=== PATIENT | female | born 1980 | race Caucasian/White ===

== ENCOUNTER 2017-12-16 19:22 | Inpatient (IN) | payer OTHER ==
[2017-12-16] MEDS ORDERED: MORPHINE 4 MG/ML SYR ONE ×2 (19:57→23:12)
[2017-12-16] MEDS ORDERED: ONDANSETRON 4 MG/2 ML VIAL ONE (19:57)
[2017-12-16] MEDS ORDERED: FAMOTIDINE 20 MG/2 ML VIAL IV ONE (19:57)
[2017-12-16 20:26] LABS: Absolute Lymphocytes (CBC) 2.4 K/uL (0.7-4.9); Absolute Monocytes 0.5 K/uL (0.1-1.3); Absolute Neutrophil 5.3 K/uL (1.8-8.0); Basophils % 0.4 % (0-1.3); Eosinophils % 1.7 % (0-4.4); Hematocrit 37.9 % (36.0-45.0); Lymphocytes % 28.8 % (15.3-44.8); MCH 29.3 pg (27.0-35.0); MCV 85.4 fL (80-100); MPV 7.9 fL (7.6-11.3); Monocytes % 5.6 % (3.3-12.3); RBC Red Blood Cell Count 4.44 M/uL (3.86-4.86)
[2017-12-16 20:41] LABS: Urine Bacteria <20 /HPF (<20); Urine Culture Reflex Order NOT NEEDED; Urine RBC >50 /HPF (NONE SEEN)
[2017-12-16 20:44] LABS: ALT/SGPT 20 U/L (12-78); AST/SGOT 19 U/L (15-37); Alkaline Phosphatase 61 U/L (45-117); Amylase Level 37 U/L (25-115); BUN Blood Urea Nitrogen 11 mg/dL (7-18); Bicarbonate 22 mmol/L (21-32); Bilirubin Direct < 0.1 mg/dL (0-0.2); Bilirubin Total 0.4 mg/dL (0.2-1.0); Glucose Level 79 mg/dL (74-106); Lipase 123 U/L (73-393); Potassium 4.2 mmol/L (3.5-5.1); Protein, Total 7.7 g/dL (6.4-8.2); Sodium Level 140 mmol/L (136-145)
--- NOTE | 2017-12-16 21:57 | RAD REPORT ---
EXAM DESCRIPTION: CT - Abdomen Pelvis W Contrast - 12/16/2017 9:34 pm CLINICAL HISTORY: Abdominal pain. Right lower quadrant pain for several days. Nausea COMPARISON: None. TECHNIQUE: Computed axial tomography of the abdomen and pelvis was obtained. 100 cc Isovue-300 is ad ministered intravenously. Oral contrast was given. All CT scans are performed using dose optimization technique as appropriate and may include automated exposure control or mA/KV adjustment according to patient size. FINDINGS: The liver, spleen, pancreas, adrenals and left kidney appear unremarkable. A 22 millimeter mass exten ds off of the right kidney. Hounsfield unit 29 The evaluation of the appendix is limited as contrast has not yet entered the terminal ileum/cecum. O n the coronal sequences there does appear to be tubular structure extending from the cecum probably r epresenting normal appendix. A thickened appendix is not seen. There is no evidence of diverticulitis. A 17 millimeter left ovarian follicle is present. No significant free fluid is noted. IMPRESSION: 22 millimeter right renal mass does not represent a simple cyst. Most likely it represen ts a benign complex cyst. Renal ultrasound in 3 months is recommended for re-evaluation. An abnormal appendix is not visualized
[2017-12-16 22:29] LABS: Urine Blood 3+ (NEG); Urine Glucose NEGATIVE (NEG); Urine Protein 1+ (NEG); Urine Specific Gravity 1.025 (1.005-1.030); Urine pH 5.5 (5.0-7.0)
--- NOTE | 2017-12-16 22:48 | ER ---
Nurse's Notes [facility] Name: German Melchor Age: 37 yrs Sex: Female : 1980 Arrival Date: 12/16/2017 Time: 19:24 Bed 23 Private MD: Diagnosis: Lower abdominal pain, unspecified Presentation: 12/16 19:43 Presenting complaint: Patient states: right lower qaudrant pain and nausea since mg2 Friday. Transition of care: patient was not received from another setting of care. Onset of symptoms was December 14, 2017. Risk Assessment: Do you want to hurt yourself or someone else? Patient reports no desire to harm self or others. Initial Sepsis Screen: Does the patient meet any 2 criteria? No. Patient's initial sepsis screen is negative. Does the patient have a suspected source of infection? No. Patient's initial sepsis screen is negative. Care prior to arrival: None. 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 - Social history:: Smoking status: Patient/guardian denies using tobacco, Patient uses alcohol, occasionally. Patient/guardian denies using street drugs, IV drugs. - Ebola Screening: : No symptoms or risks identified at this time. Screenin:49 Abuse screen: Denies threats or abuse. Nutritional screening: No deficits noted. mg2 Tuberculosis screening: No symptoms or risk factors identified. Fall Risk None identified. Assessment: 20:10 General: Appears uncomfortable, Behavior is cooperative, crying. Pain: Complains of mg2 pain in right lower quadrant Pain does not radiate. Pain currently is 8 out of 10 on a pain scale. Quality of pain is described as aching, Pain began gradually, 2-3 days ago. Is intermittent, Alleviated by medications, rest, Noted to be grimacing. Neuro: Level of Consciousness is awake, alert, obeys commands, Oriented to person, place, time, situation. Cardiovascular: Capillary refill < 3 seconds Patient's skin is warm and dry. Respiratory: Airway is patent Respiratory effort is even, unlabored, Respiratory pattern is regular, symmetrical. GI: Abdomen is flat, non-distended, Bowel sounds present X 4 quads. Abd is soft Reports lower abdominal pain, nausea. : Urine is blood tinged, on period now. EENT: No signs and/or symptoms were reported regarding the EENT system. Derm: Skin is intact, Skin is pink, warm \T\ dry. normal. Musculoskeletal: Circulation, motion, and sensation intact. 20:43 Reassessment: Patient appears in no apparent distress at this time. Patient and/or mg2 family updated on plan of care and expected duration. Pain level reassessed. Patient is alert, oriented x 3, equal unlabored respirations, skin warm/dry/pink. 12/17 00:04 Reassessment: Patient appears in no apparent distress at this time. Patient and/or mg2 family updated on plan of care and expected duration. Pain level reassessed. Patient is alert, oriented x 3, equal unlabored respirations, skin warm/dry/pink. Vital Signs: 12/16 19:46 BP 132 / 70; Pulse 78; Resp 18; Temp 98.6; Pulse Ox 100% on R/A; Weight 68.04 kg; mg2 Height 5 ft. 4 in. (162.56 cm); Pain 8/10; 20:43 BP 125 / 74; Pulse 75; Resp 17; Pulse Ox 100% on R/A; Pain 3/10; mg2 12/17 00:03 BP 121 / 76; Pulse 89; Resp 18; Pulse Ox 100% on R/A; Pain 0/10; mg2 12/16 19:46 Body Mass Index 25.75 (68.04 kg, 162.56 cm) mg2 ED Course: 12/16 19:24 Patient arrived in ED. am2 19:40 Bandar Mcmullen, LANIE is Primary Nurse. mg2 19:40 Niall Hopper PA is PHCP. cp 19:40 Foster Soto MD is Attending Physician. cp 19:46 Triage completed. mg2 19:49 Arm band placed on. mg2 20:12 Patient has correct armband on for positive identification. Placed in gown. Bed in low mg2 position. Call light in reach. Side rails up X 1. Pulse ox on. NIBP on. Door closed. Warm blanket given. 20:12 No provider procedures requiring assistance completed. Inserted saline lock: 20 gauge mg2 in right antecubital area, using aseptic technique. Blood collected. 21:29 PHCP role handed off by Niall Hopper PA sn 21:29 Stacie Rivera FNP-C is PHCP. sn 21:34 CT completed. Patient tolerated procedure well. Patient moved back from CT. ma 21:34 CT Abd/Pelvis - W/Contrast In Process Unspecified. EDMS 22:47 Rebecca Amezcua MD is Hospitalizing Provider. [facility] 12/17 00:09 Patient admitted, IV remains in place. mg2 Administered Medications: 12/16 20:09 Drug: morphine 4 mg Route: IVP; Site: right antecubital; mg2 21:21 Follow up: Response: No adverse reaction; Marked relief of symptoms mg2 20:10 Drug: Zofran 4 mg Route: IVP; Site: right antecubital; mg2 21:21 Follow up: Response: No adverse reaction; Marked relief of symptoms mg2 20:10 Drug: Pepcid 20 mg Route: IVP; Site: right antecubital; mg2 21:21 Follow up: Response: No adverse reaction; Marked relief of symptoms mg2 23:09 Drug: morphine 4 mg Route: IVP; Site: right antecubital; mg2 12/17 00:07 Follow up: Response: No adverse reaction; Marked relief of symptoms mg2 Outcome: 12/16 22:48 Decision to Hospitalize by Provider. [facility] 12/17 01:15 Patient left the ED. mg2 Signatures: Dispatcher [employer] EDMS Stacie Rivera FNP-C DIRECTOR OF ENTERPRISE STRATEGY-Csnw Niall Hopper PA PA cp Jordan, Nathan nj Moreno, Amanda am2 Gardose, Michele, LANIE RN mg2
--- NOTE | 2017-12-16 22:48 | EDPHYS ---
Physician Documentation [facility] Name: German Melchor Age: 37 yrs Sex: Female : 1980 Arrival Date: 12/16/2017 Time: 19:24 Bed 23 Private MD: ED Physician Foster Soto HPI: 12/16 19:46 This 37 yrs old Female presents to ER via Unassigned with complaints of cp Abdominal Pain - RQ. 19:46 The patient presents with abdominal pain right lower quadrant. Onset: The cp symptoms/episode began/occurred 2 day(s) ago. The symptoms do not radiate. Associated signs and symptoms: Pertinent negatives: blood in stools, constipation, diarrhea, fever, vaginal discharge, vomiting. Severity of pain: in the emergency department the pain is actually worse moderately. 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 - Social history:: Smoking status: Patient/guardian denies using tobacco, Patient uses alcohol, occasionally. Patient/guardian denies using street drugs, IV drugs. - Ebola Screening: : No symptoms or risks identified at this time. ROS: 19:50 Constitutional: Negative for body aches, chills, fever, poor PO intake. cp 19:50 Eyes: Negative for injury, pain, redness, and discharge. cp 19:50 ENT: Negative for drainage from ear(s), ear pain, sore throat, difficulty swallowing, difficulty handling secretions. 19:50 Cardiovascular: Negative for chest pain, palpitations. 19:50 Respiratory: Negative for cough, shortness of breath, wheezing. 19:50 Abdomen/GI: Positive for abdominal pain, nausea, Negative for vomiting, diarrhea, constipation, black/tarry stool, rectal bleeding. 19:50 Back: Negative for pain at rest, pain with movement, radiated pain. 19:50 : Positive for vaginal bleeding, Negative for urinary symptoms, flank pain. 19:50 Skin: Negative for cellulitis, rash. 19:50 Neuro: Negative for altered mental status, headache, weakness. 19:50 All other systems are negative. Exam: 20:00 Head/Face: Normocephalic, atraumatic. cp 20:00 Constitutional: The patient appears in no acute distress, alert, awake, non-toxic, well developed, well nourished, uncomfortable. 20:00 Eyes: Periorbital structures: appear normal, Conjunctiva: normal, no exudate, no injection, Sclera: no appreciated abnormality, Lids and lashes: appear normal, bilaterally. 20:00 ENT: External ear(s): are unremarkable, Nose: is normal, Mouth: Lips: moist, Oral mucosa: pink and intact, moist, Posterior pharynx: is normal, airway is patent. 20:00 Neck: ROM/movement: is normal, is supple, without pain, no range of motions limitations, no nuchal rigidity. 20:00 Chest/axilla: Inspection: normal, Palpation: is normal, no crepitus, no tenderness. 20:00 Cardiovascular: Rate: normal, Rhythm: regular. 20:00 Respiratory: the patient does not display signs of respiratory distress, Respirations: normal, no use of accessory muscles, no retractions, no splinting, no tachypnea, labored breathing, is not present, Breath sounds: are clear throughout, no decreased breath sounds, rhonchi, no stridor, no wheezing. 20:00 Abdomen/GI: Inspection: abdomen appears normal, Bowel sounds: active, all quadrants, Palpation: soft, in all quadrants, severe abdominal tenderness, in the right lower quadrant, voluntary guarding, is elicited in the right lower quadrant. 20:00 Back: pain, is absent, ROM is normal. 20:00 Skin: cellulitis, is not appreciated, no rash present. Vital Signs: 19:46 BP 132 / 70; Pulse 78; Resp 18; Temp 98.6; Pulse Ox 100% on R/A; Weight 68.04 kg; mg2 Height 5 ft. 4 in. (162.56 cm); Pain 8/10; 20:43 BP 125 / 74; Pulse 75; Resp 17; Pulse Ox 100% on R/A; Pain 3/10; mg2 0912 00:03 BP 121 / 76; Pulse 89; Resp 18; Pulse Ox 100% on R/A; Pain 0/10; mg2 09/11 19:46 Body Mass Index 25.75 (68.04 kg, 162.56 cm) mg2 MDM: 12/16 19:41 Patient medically screened. cp 20:00 Differential diagnosis: appendicitis, bowel obstruction, diverticulitis, Ectopic cp , non-specific abd pain, Ovarian Torsion, Pelvic Inflammatory Disease, Pyelonephritis, Tubal Ovarian Abcess, Ureterolithiasis, urinary tract infection. 20:30 Physician consultation: Phillip Wood MD in the emergency department to see patient at snw 20:30. 22:48 Data reviewed: vital signs, nurses notes. Data interpreted: Pulse oximetry: on room air snw is 100 %. Interpretation: normal. Counseling: I had a detailed discussion with the patient and/or guardian regarding: the historical points, exam findings, and any diagnostic results supporting the discharge/admit diagnosis, lab results, radiology results, the need for further work-up and treatment in the hospital. Physician consultation: Phillip Wood MD was called at 22:48, was contacted at 22:48, regarding patient's condition, would like admission per Dr. Rebecca Amezcua MD. 12/16 19:29 Order name: Urine Culture snw 12/16 19:29 Order name: Urine Microscopic Only; Complete Time: 21:22 [facility] 12/16 21:22 Interpretation: Normal except: URBC >50; SQEPI 10-20. cp 12/16 19:45 Order name: Amylase, Serum; Complete Time: 21:22 cp 12/16 19:45 Order name: Basic Metabolic Panel; Complete Time: 21:22 12/16 21:23 Interpretation: Within normal limits. 12/16 19:45 Order name: CBC with Diff; Complete Time: 21:22 cp 12/16 21:22 Interpretation: Reviewed. 12/16 19:45 Order name: Creatinine for Radiology; Complete Time: 21:22 cp 12/16 19:45 Order name: Hepatic Function; Complete Time: 21:22 cp 12/16 21:23 Interpretation: Normal except: GLOB 3.7. cp 12/16 19:45 Order name: Lipase; Complete Time: 21:22 cp 12/16 20:37 Order name: Urine Dipstick--Ancillary (enter results); Complete Time: 22:35 ms 12/16 20:37 Order name: Urine --Ancillary (enter results); Complete Time: 22:35 ms 12/16 23:18 Order name: CBC with Automated Diff EDGA 12/16 23:18 Order name: CBC with Automated Diff; Complete Time: 06:40 EDGA 12/16 23:18 Order name: Comprehensive Metabolic Panel EDGA 12/16 23:18 Order name: Comprehensive Metabolic Panel; Complete Time: 06:40 EDGA 12/16 19:29 Order name: Urine Test (obtain specimen); Complete Time: 20:10 snw 12/16 19:29 Order name: Urine Dipstick-Ancillary (obtain specimen); Complete Time: 20:10 snw 12/16 19:45 Order name: IV Saline Lock; Complete Time: 20:10 cp 12/16 19:45 Order name: Labs collected and sent; Complete Time: 20:10 cp 12/16 19:45 Order name: CT Abd/Pelvis - W/Contrast; Complete Time: 22:30 cp 12/16 22:56 Order name: CONS Physician Consult EDGA 12/16 23:18 Order name: CONS Pharmacy Consult EDGA 12/16 23:18 Order name: NPO EDGA Administered Medications: 20:09 Drug: morphine 4 mg Route: IVP; Site: right antecubital; mg2 21:21 Follow up: Response: No adverse reaction; Marked relief of symptoms mg2 20:10 Drug: Zofran 4 mg Route: IVP; Site: right antecubital; mg2 21:21 Follow up: Response: No adverse reaction; Marked relief of symptoms mg2 20:10 Drug: Pepcid 20 mg Route: IVP; Site: right antecubital; mg2 21:21 Follow up: Response: No adverse reaction; Marked relief of symptoms mg2 23:09 Drug: morphine 4 mg Route: IVP; Site: right antecubital; mg2 12/17 00:07 Follow up: Response: No adverse reaction; Marked relief of symptoms mg2 Disposition: 04:22 Co-signature as Attending Physician, Foster Soto MD. pkl Disposition: 12/16/17 22:48 Hospitalization ordered by Rebecca Amezcua for Observation. Preliminary diagnosis is Lower abdominal pain, unspecified. - Bed requested for Telemetry/MedSurg (observation). - Status is Observation. mg2 - Condition is Stable. - Problem is new. - Symptoms are unchanged. UTI on Admission? No Signatures: Dispatcher [employer] EDMS Foster Soto MD MD pkl Therrien, Shelly, JAVA SOFTWARE-C JAVA SOFTWARE-Csnw Moody Kae ms Niall Hopper PA PA cp Gardose, Michele, RN RN mg2 Corrections: (The following items were deleted from the chart) 12/16 22:50 22:48 Admission orders: after a detailed discussion of the patient's condition and snw case, the admit orders are written by me. [facility] 23:54 22:48 Hospitalization Ordered by Rebecca Amezcua MD for Observation. Preliminary ms diagnosis is Lower abdominal pain, unspecified. Bed requested for Telemetry/MedSurg (observation). Status is Observation. Condition is Stable. Problem is new. Symptoms are unchanged. UTI on Admission? No. snw 12/17 01:15 12/16 23:54 12/16/2017 22:48 Hospitalization Ordered by Rebecca Amezcua MD for mg2 Observation. Preliminary diagnosis is Lower abdominal pain, unspecified. Bed requested for Telemetry/MedSurg (observation). Status is Observation. Condition is Stable. Problem is new. Symptoms are unchanged. UTI on Admission? No. ms
[2017-12-16] MEDS ORDERED: MORPHINE 2 MG/ML SYR IV PRN (23:14)
[2017-12-16] MEDS ORDERED: ACETAMINOPHEN 500 MG TAB PO PRN (23:14)
[2017-12-16] MEDS ORDERED: ONDANSETRON 4 MG/2 ML VIAL IV PRN (23:14)
[2017-12-16] MEDS: NA CHLORIDE 0.9% 1,000 ML IV SCH (23:45)
[2017-12-17] MEDS ORDERED: ONDANSETRON 4 MG/2 ML VIAL ONE (00:03)
[2017-12-17] MEDS ORDERED: NA CHLORIDE 0.9% 1,000 ML ONE (00:03)
[2017-12-17] MEDS: METRONIDAZOLE 500mg IVPB 500 MG/100 ML BAG IV SCH ×3 (01:48→18:12)
[2017-12-17] MEDS ORDERED: MORPHINE 4 MG/ML SYR IV ONE (03:34)
[2017-12-17] MEDS ORDERED: KETOROLAC 30 MG/ML INJ IV ONE (03:35)
[2017-12-17] MEDS: NA CHLORIDE 0.9% 1,000 ML IV SCH ×4 (04:40→21:33)
[2017-12-17 04:52] LABS: Absolute Lymphocytes (CBC) 2.9 K/uL (0.7-4.9); Absolute Monocytes 0.7 K/uL (0.1-1.3); Absolute Neutrophil 5.3 K/uL (1.8-8.0); Basophils % 0.6 % (0-1.3); Eosinophils % 1.4 % (0-4.4); Hematocrit 35.3 % (36.0-45.0); MCH 28.7 pg (27.0-35.0); MPV 7.9 fL (7.6-11.3); Monocytes % 7.3 % (3.3-12.3); RBC Red Blood Cell Count 4.16 M/uL (3.86-4.86)
[2017-12-17 05:03] VITALS: BMI 25.7
[2017-12-17] MEDS: ONDANSETRON 4 MG/2 ML VIAL IV PRN ×3 (05:16→21:33)
[2017-12-17 05:27] LABS: ALT/SGPT 19 U/L (12-78); AST/SGOT 11 U/L (15-37); Albumin 3.7 g/dL (3.4-5.0); Alkaline Phosphatase 53 U/L (45-117); BUN Blood Urea Nitrogen 12 mg/dL (7-18); Bicarbonate 21 mmol/L (21-32); Bilirubin Total 0.4 mg/dL (0.2-1.0); Glucose Level 76 mg/dL (74-106); Potassium 3.4 mmol/L (3.5-5.1); Protein, Total 6.9 g/dL (6.4-8.2); Sodium Level 140 mmol/L (136-145)
--- OUTSIDE RECORDS SUMMARY | 2017-12-17 08:11 | XMS REPORT | Clinical Summary ---
:1980 Author Organization [facility] Address [address] [place] [address] Care Team Providers Name Role Phone Asked, No Pcp Primary Care Provider Unavailable Allergies No Known Allergies Current Medications Prescription Sig. Disp. Refills Start Date End Date Status omega [id number]-fish oil Take by mouth. Active (FISH OIL) 100-160-1,000 mg capsule [id number] Take by mouth Active #2 (TL FOLATE) 27 mg iron- daily. 1 mg tablet cyanocobalamin 100 MCG Take 100 mcg by Active tablet mouth daily. Active Problems Not on file Family History Medical History Relation Name Comments Diabetes Maternal Aunt Diabetes Maternal Uncle Diabetes Mother Relation Name Status Comments Maternal Aunt Maternal Uncle Mother Social History Tobacco Use Types Packs/Day Years Used Date Never Smoker Alcohol Use Drinks/Week oz/Week Comments Yes Occasional Sex Assigned at Date Recorded Not on file Last Filed Vital Signs Not on file Plan of Treatment Health Maintenance Due Date Last Done Comments CERVICAL CANCER SCREENING 2001 INFLUENZA VACCINE 11/05/2017 Results Not on fileafter 12/15/2016 Insurance Payer Benefit Plan / Group Subscriber ID Type Phone Address [facility] CHOICE/CHOICE + xxxxxxxxx HMO/PPO
[2017-12-17] MEDS: CEFTRIAXONE/SWI 1gm 1 GM/10 ML SYR IV SCH (08:59)
[2017-12-17] MEDS ORDERED: CEFTRIAXONE 1 GM/NS 50 ML 1 GM/50 ML BAG IV SCH (09:00)
[2017-12-17] MEDS: MORPHINE 4 MG/ML SYR IV PRN ×2 (09:05→13:27)
--- NOTE | 2017-12-17 09:17 | P.HP ---
Certification for Inpatient Patient admitted to: Observation With expected LOS: <2 Midnights Patient will require the following post-hospital care: None Practitioner: I am a practitioner with admitting privileges, knowledge of patient current condition, hospital course, and medical plan of care. Services: Services provided to patient in accordance with Admission requirements found in Title 42 Section 412.3 of the Code of Federal Regulations Patient History Date of Service: 12/16/17 Reason for admission: Abdominal pain History of Present Illness: Patient is a 37-year-old female who came into the hospital with abdominal pain. Pain was excruciating and it was felt that she may have an acute abdomen. However, CT of the abdomen was negative for appendicitis. The CT did reveal small left ovarian follicle as well as a renal cyst. The family states that the cyst was seen on the kidneys in the past. Patient also has a history of celiac disease. She accidentally ate food that was mixed in with her gluten free diet. Since then she started having abdominal pain as well as diarrhea. Her symptoms are somewhat improved however the pain became very excruciating last night. Patient's brought her into the emergency room for further evaluation. Allergies lamotrigine [From Lamictal] Adverse Reaction (Verified 12/17/17 01:33) Unknown levofloxacin [From Levaquin] Adverse Reaction (Verified 12/17/17 01:33) Unknown sulfamethoxazole [From Bactrim] Adverse Reaction (Verified 12/17/17 01:33) Unknown trimethoprim [From Bactrim] Adverse Reaction (Verified 12/17/17 01:33) Unknown wheat Adverse Reaction (Verified 12/17/17 01:42) Anaphylaxis Home Medications: Tramadol HCl/Acetaminophen [Tramadol-Acetaminophn 37.5-325] 1 each PO DAILY PRN 12/17/17 - Past Medical/Surgical History Has patient received pneumonia vaccine in the past: No Diabetic: No -: Celiac Disease -: Chiari Malformation -: Laminectomy -: Craniotomy -: Rotator cuff surgery - Family History Mother Medical History: Hypertension, Diabetes Notes: Clottting problems - Social History Smoking Status: Never smoker Alcohol use: Yes CD- Drugs: No Caffeine use: Yes Place of Residence: Home Review of Systems 10-point ROS is otherwise unremarkable Physical Examination - Vital Signs Temperature: 97.8 F Blood Pressure: 108/57 Pulse: 74 Respirations: 16 Pulse Ox (%): 96 - Physical Exam General: Alert, In no apparent distress, Oriented x3 HEENT: Atraumatic, PERRLA, Mucous membr. moist/pink, EOMI, Sclerae nonicteric Neck: Supple, 2+ carotid pulse no bruit, No LAD, Without JVD or thyroid abnormality Respiratory: Clear to auscultation bilaterally, Normal air movement Cardiovascular: Regular rate/rhythm, Normal S1 S2, No murmurs Gastrointestinal: Normal bowel sounds, Soft and benign, Non-distended, Tenderness Musculoskeletal: No clubbing, No swelling, No tenderness Integumentary: No rashes Neurological: Normal gait, Normal speech, Normal strength at 5/5 x4 extr, Normal tone, Sensation intact, Cranial nerves 3-12 intact, Normal affect Lymphatics: No axilla or inguinal lymphadenopathy - Studies Laboratory Data (last 24 hrs) 12/16/17 20:00: Creatinine 0.60 12/16/17 20:00: WBC 8.4, Hgb 13.0, Hct 37.9, Plt Count 307 12/16/17 20:00: Sodium 140, Potassium 4.2, BUN 11, Creatinine 0.60, Glucose 79, Total Bilirubin 0.4, AST 19, ALT 20, Alkaline Phosphatase 61, Amylase 37, Lipase 123 Assessment & Plan - Plan Assessment: 1. Abdominal pain 2. Celiac disease 3. Renal cyst 4. Ketosis Plan: 1. IV hydration 2. IV antibiotics 3. Pain control 4. GI consultation 5. Surgery in consultation 6. GI and DVT prophylaxis - Advance Directives Does patient have a Living Will: No Does patient have a Durable POA for Healthcare: No - Code Status/Comfort Care Code Status Assessed: Yes Code Status: Full Code Critical Care: No Time Spent Managing PTS Care (In Minutes): 50
--- NOTE | 2017-12-17 12:11 | CON ---
Date of Consultation: 12/16/2017 The patient was seen in the ER. History Of Present Illness: This is the case of a 37-year-old patient, who comes to us with 3 days h istory of abdominal pain, lower abdomen. No nausea, although she has had no appetite. No dysuria, h ematuria, hematochezia, melena. No recent traveling out of the country. No family member sick at [facility]. Tonight, the pain was getting worse and she decided to come to the ER. Review of Systems: Constitutional: Denies any fever, any chills. Respiratory: Denies any shortness of breath. Genitourinary: Denies any dysuria, hematuria, or any vaginal discharge. Gastrointestinal: As above. Past Medical History: Celiac disease. Chiari malformation. Past Surgical History: Include laminectomy, craniotomy, rotator cuff surgery. Family History: Diabetes, hypertension. Social History: She does not smoke. She does not drink alcohol. Physical Examination: General: The patient is awake and alert. HEENT: Pupils are equal and reactive, anicteric. Neck: Supple. Chest: Clear. Heart: S1, S2. Abdomen: Lower abdominal tenderness pelvic and right lower quadrant. No rebound. Pelvic/Breast/Rec carmelo: Deferred. Extremity: Good capillary refill. Laboratory Data: Blood work shows WBC count of 8.4, hemoglobin of 13, platelets of 307 with potassiu m 4.2, creatinine 0.6. UA; rbc's more than 50. Diagnostic Data: CT scan of abdomen and pelvis, interpreted by Dr. Plummer, 7 mm left ovarian cyst follicle. A 22 mm renal mass. Thickened appendix not seen. Assessment: This is a 37-year-old patient with lower abdominal pain, the etiology of that is unknown . No leukocytosis. CT scan negative for appendix. Even though that is the case, her abdominal pain needs to be evaluated and further workup, so I agreed with admission to the hospital, bowel rest, CT abdominal examination, repeat blood work in the morning and will discuss once again in the morning w ith the radiologist, review the films once again to see if extra views are necessary. In the meantim e, also any senior microsoft net developer evaluation should be done by the primary doctor. ARABELLA/NAHOMI Voice ID: [id number] Report ID: [id number]
--- NOTE | 2017-12-17 13:18 | RAD REPORT ---
EXAM DESCRIPTION: US - Transvaginal Study Probe - 12/17/2017 1:04 pm CLINICAL HISTORY: Right lower quadrant abdominal pain, abnormal CT study COMPARISON: CT exam December 16 TECHNIQUE: Endovaginal sonography was performed. FINDINGS: Endometrial stripe is 5-6 mm in maximum thickness. No endometrial mass or polyp. Endometri al-myometrial interface is preserved with no myometrial mass. Uterus is 7.8 x 4.3 x 4.6 cm. Right ovary is 3.5 x 2.2 x 2.1 cm. Left ovary is 2.5 x 2.2 x 1.9 cm. Doppler evaluation shows normal blood flow within the bilateral ovarian stroma. A thin-walled anechoic cyst is present in the left ov philippe 14 mm in maximum dimension. No suspicious left ovarian or left adnexal finding. Small follicles a nd cysts are seen in the right ovary. Largest is 12 mm. No worrisome ovarian or adnexal finding. Minimal amount of fluid in the cul-de-sac is within physiologic limits. IMPRESSION: Small cysts and follicles are seen in the bilateral ovaries. No worrisome or suspicious ovarian or adnexal finding.
--- NOTE | 2017-12-17 19:32 | PN ---
Date of Progress Note: 12/17/2017 Subjective: The patient seen and examined. Chart reviewed and case discussed with RN and Dr. Dayday dotson. The patient states her abdominal pain is significantly better. She has been at the bedside. Tr eatment plan explained. All questions answered. No further nausea or vomiting. Review of Systems: Negative except as above. Medications: List reviewed. Physical Examination: Vital Signs: Temperature 97, heart rate 76, blood pressure 107/57, respirations 16, O2 97% on room a ir. General: Awake, alert, oriented x3. Some mild distress. Ill-appearing female. CV: S1, S2. No murmurs. Regular rate and rhythm. Peripheral pulses present. Respiratory: Moving air well bilaterally. No wheezing. Gastrointestinal: Abdomen is soft. Mild tenderness to palpation in the right lower quadrant. No re bound or guarding. No rigidity. Bowel sounds positive. Extremities: No clubbing, cyanosis, or edema. Neurologic: Nonfocal. Laboratory Data: Sodium 140, potassium 3.4, chloride 106, CO2 21, BUN 12, creatinine 0.5, glucose 76 , calcium 8.1. WBC 9.1, H and H 11.9 and 35.3, platelets 293. Ultrasound transvaginal shows, small cysts and follicles are seen in the bilateral ovaries. No worrisome for suspicious ovarian or adnexa l finding. Assessment And Plan: A 37-year-old female with: 1.Acute right lower quadrant and suprapubic abdominal pain, improving, appendicitis ruled out. Appr eciate Dr. Wood's input. CT scan does not show any inflammation of the appendix. The patient di d have some ovarian cysts and follicles. Transvaginal ultrasound has been done. No worrisome findin gs seen. The patient to follow up with her EDUCATION REPORTER as outpatient. 2.Celiac disease. The patient needs to continue gluten free diet and follow up with GI as outpatien t. 3.Renal cyst, apparently has been there previously. The patient is aware, has been monitoring with serial imaging studies. 4.Hypokalemia. We will replace and monitor. 5.Ketosis, improving. Plan: We will start on clear liquid diet. Adjust pain medications. Ambulate. Likely discharge in a.m. if continues to improve and tolerates diet. /NAHOMI Voice ID: [id number] Report ID: [id number]
[2017-12-17] MEDS ORDERED: POTASSIUM CL SA 10 MEQ TAB PO ONE (20:55)
[2017-12-17] MEDS: HYDROCODONE/APAP 7.5/325 MG TAB PO PRN (21:24)
[2017-12-18 04:45] LABS: Absolute Lymphocytes (CBC) 2.4 K/uL (0.7-4.9); Absolute Monocytes 0.4 K/uL (0.1-1.3); Absolute Neutrophil 3.7 K/uL (1.8-8.0); Basophils % 0.5 % (0-1.3); Eosinophils % 2.3 % (0-4.4); Hematocrit 33.3 % (36.0-45.0); Lymphocytes % 35.6 % (15.3-44.8); MCH 29.2 pg (27.0-35.0); MCV 84.9 fL (80-100); MPV 7.5 fL (7.6-11.3); Monocytes % 6.4 % (3.3-12.3); RBC Red Blood Cell Count 3.92 M/uL (3.86-4.86)
[2017-12-18 05:00] LABS: ALT/SGPT 14 U/L (12-78); AST/SGOT 12 U/L (15-37); Albumin 3.4 g/dL (3.4-5.0); Alkaline Phosphatase 49 U/L (45-117); BUN Blood Urea Nitrogen 5 mg/dL (7-18); Bicarbonate 21 mmol/L (21-32); Bilirubin Total 0.4 mg/dL (0.2-1.0); Glucose Level 150 mg/dL (74-106); Potassium 4.1 mmol/L (3.5-5.1); Protein, Total 6.1 g/dL (6.4-8.2); Sodium Level 140 mmol/L (136-145)
[2017-12-18] MEDS: NA CHLORIDE 0.9% 1,000 ML IV SCH ×2 (08:27→18:09)
[2017-12-18] MEDS: CEFTRIAXONE/SWI 1gm 1 GM/10 ML SYR IV SCH (08:27)
[2017-12-18] MEDS: HYDROCODONE/APAP 7.5/325 MG TAB PO PRN ×2 (09:15→15:15)
[2017-12-18] MEDS: ONDANSETRON 4 MG/2 ML VIAL IV PRN ×2 (13:24→20:56)
[2017-12-18] MEDS: MORPHINE 2 MG/ML SYR IV PRN (20:56)
--- NOTE | 2017-12-18 21:56 | PN ---
Subjective: The patient seen and examined. Chart reviewed and case discussed with Dr. Wood. Otoniel walker at the bedside. Treatment plan explained. All questions answered. The patient is still havin g significant amount of pain, nausea, unable to tolerate soft diet. Review of Systems: Negative except as above. Medications: List reviewed. Physical Examination: Vital Signs: Temperature 98.6, heart rate 68, blood pressure 127/73, respirations 17, O2 97% on room air. General: Awake, alert, oriented x3, in some mild distress due to pain, somewhat ill-appearing. CV: S1 and S2. No murmurs. Respiratory: Moving air well bilaterally. Abdomen: Soft. Tenderness to palpation in the right lower quadrant. No rebound or guarding. No ri gidity. Hypoactive bowel sounds. Extremities: No clubbing, cyanosis, or edema. Neuro: Nonfocal. Laboratory Data: Sodium 140, potassium 4.1, chloride 111, CO2 21, BUN 5, creatinine 0.4, glucose 150 , calcium 7.7. WBC 6.7, H and H 11.4/33.3, platelets 303. Urine culture shows mixed teressa. Assessment And Plan: A 37-year-old female with: 1.Acute right lower quadrant and suprapubic abdominal pain, improving with continued symptoms of nils sea, vomiting. Surgery recommends exploratory laparotomy. The patient and agreeable at this time. 2.Celiac disease. Unable to tolerate soft diet. 3.Renal cyst has been there previously. The patient has had serial imaging to monitor. 4.Hyperkalemia. We will replace and monitor. 5.Hypocalcemia. We will replace and monitor. 6.Ketosis, resolved. Plan: We will contact surgeon regarding possible laparotomy in a.m. /NAHOMI Voice ID: [id number] Report ID: [id number]
[2017-12-19] MEDS: NA CHLORIDE 0.9% 1,000 ML IV SCH ×3 (00:52→19:20)
[2017-12-19] MEDS: ONDANSETRON 4 MG/2 ML VIAL IV PRN ×2 (00:55→05:24)
[2017-12-19] MEDS: MORPHINE 2 MG/ML SYR IV PRN ×2 (00:55→05:24)
[2017-12-19] MEDS: CEFTRIAXONE/SWI 1gm 1 GM/10 ML SYR IV SCH (09:20)
[2017-12-19] MEDS ORDERED: SUCCINYLCHOLINE 20 MG/ML (10 ML) IV ONE (13:23)
[2017-12-19] MEDS ORDERED: PROPOFOL 200 MG/20 ML VIAL IV ONE (13:25)
[2017-12-19] MEDS ORDERED: FENTANYL CITR 100 MCG/2 ML ONE (13:25)
[2017-12-19] MEDS ORDERED: ONDANSETRON HCL 40 MG/20 ML VIAL ONE ×2 (13:26→13:40)
[2017-12-19] MEDS ORDERED: LIDOCAINE 2% MPF 5 ML VIAL ONE (13:26)
[2017-12-19] MEDS ORDERED: ROCURONIUM 50 MG/5 ML VIAL IV ONE (13:39)
--- NOTE | 2017-12-19 14:02 | P.PN ---
Subjective Date of Service: 12/18/17 Chief Complaint: Abdominal pain RLQ unknown origin Subjective: No new changes Review of Systems General: Fever (no), Chills (no), Sweats (no) Respiratory: Unremarkable Cardiovascular: Unremarkable Gastrointestinal: Nausea, Abdominal Pain, Melena (no), Hematochezia (no), As per HPI Genitourinary: Dysuria (no), Frequency (no), Urgency (no), Incontinence (no) Physical Examination - Vital Signs Temperature: 97.4 F Blood Pressure: 138/67 Pulse: 70 Respirations: 16 Pulse Ox (%): 98 - Physical Exam General: Alert, In no apparent distress, Oriented x3, Cooperative HEENT: PERRLA, EOMI Neck: Supple Cardiovascular: No edema, Normal pulses Gastrointestinal: Tenderness (RLQ), Guarding Musculoskeletal: No contractures, No erythema, No tenderness, No warmth External genitalia: Deferred - Studies Microbiology Data (last 24 hrs): 12/16/17 19:55 Clean Catch Urine [place] Count - Final BETWEEN 10,000 & 100,000 CFU/ML 12/16/17 19:55 Clean Catch Urine - Final Assessment And Plan - Plan RLQ pain unknown origin I discuss case with attending physicain in charge and patient. As an alternative, DIagnostic laparoscopy offered since clinically she behave as an acute appenditis with guarding and exquisite tenderness over RLQ. No consent has been giving even when diagnostic lap has been offered. want to discuss with her options and will get back to me. Gastroenterology and gynecological evaluation also reccomended
[2017-12-19] MEDS ORDERED: Ringers Lactate 1,000 ML IV ONE (14:19)
[2017-12-19] MEDS ORDERED: GLYCOPYRROLATE 0.2 MG/ML SYR ONE (14:29)
[2017-12-19] MEDS ORDERED: KETOROLAC 30 MG/ML INJ ONE (14:29)
[2017-12-19] MEDS ORDERED: Phenylephrine HCl 10 MG/ML 1 ML VIAL ONE (14:31)
[2017-12-19] MEDS ORDERED: NEOSTIGMINE 1 MG/ML -5 ML SYRINGE ONE (14:32)
--- NOTE | 2017-12-19 14:38 | P.BOP ---
Preoperative diagnosis: , RLQ pain, ovarian cyst Postoperative diagnosis: same plus acute appendicitis, rupture right ovarian cyst Primary procedure: Laparoscopic appendectomy Secondary procedure: Evacuation of intraperitoneal hematoma Assembler Camper: Sol Prieto (Livier) Estimated blood loss: <10cc, Specimen: rossy Findings: see dictation Anesthesia: General Complications: None Transferred to: Recovery Room Condition: Good
[2017-12-19] MEDS: MEPERIDINE HCL 50 MG/ML AMP ONE ×3 (14:52→15:06)
[2017-12-19] MEDS: HYDROCODONE/APAP 7.5/325 MG TAB PO PRN ×2 (17:13→21:22)
[2017-12-19] MEDS: CALCITROL 0.25 MCG CAP PO SCH (17:14)
--- NOTE | 2017-12-19 18:57 | PN ---
Date of Progress Note: 12/19/2017 Subjective: Vital signs, temperature was 97.4. The patient is awake and alert. Still complained of right lower quadrant tenderness. Review of Systems: Respiratory: Denies any shortness of breath. Constitutional: Denies any fever. Gastrointestinal: The patient still has abdominal pain in right lower quadrant with nausea. No diar arash. Genitourinary: Denies any dysuria, hematuria, or vaginal discharge. Physical Examination: General: The patient is awake and alert. No distress. HEENT: Pupil are equal and reactive. Anicteric. Neck: Supple. Chest: Clear. Abdomen: Right lower quadrant tenderness with guarding. Exquisite pain, intractable, has not improv ed. No mass palpated. Extremities: Good capillary refill. Laboratory Data: Blood work shows WBC count of 6.7. Assessment: This is a 37-year-old patient with intractable right lower quadrant pain. It has been l geovanny that for a few days. CAT scan cannot tell you detail of that. The patient has primary doctors i nvolved. The CAT scan was reviewed. Once again, 2 radiologists trying to look for etiology of that pain. She cannot not tolerate diet. She is nauseous and she is mincing with right lower quadrant pa in. I explained to them since day #1 the option of diagnostic lap. The does not believe muc h in surgery at this moment. Right now, we explained to him once again that she has pain that we can not explain and one other option, they do not have to take an option will be diagnostic laparoscopy, possible appendectomy since this is an area right at the appendix. The benefits, alternatives, and r isks of that fully explained to the patient, which include, but are not limited to infection, bleedin g, damage to adjacent structures, anesthesia complication, recurrence of the pain, negative appendix, negative exploration, SC, even . He also understands this may not relieve her symptoms. She m ight need more than one surgical intervention. Both of them understand this is a diagnostic procedur e, may or may not find the etiology of the pain. They have been trying conservative treatment for at least 7 days already and this has not improved. She even has some gynecological workup too with no specific etiology for this pain. That being said, they have an option once again and now they select ed the option of diagnostic laparoscopy and we are going to proceed accordingly. HM/MODL Voice ID: [id number] Report ID: [id number]
--- NOTE | 2017-12-19 21:51 | PN ---
Date of Progress Note: 12/19/2017 Subjective: The patient was seen and examined. Chart was reviewed and case was discussed with LANIE Wood. The patient went for surgery today, exploratory laparotomy, which the patient and sweetie walker did not decide until this morning to go ahead and proceed. The patient was kept n.p.o. at [facility] for precautionary reasons and she had not been able to tolerate her diet regardless. Review of Systems: Negative except as above. Medications: List reviewed. Physical Examination: Vital Signs: Temperature 98.6, heart rate 62, blood pressure 107/48, respirations 16, O2 saturation 98% on room air. General: Awake, alert, and oriented x3, in some mild distress, ill-appearing female. CV: S1, S2. No murmurs. Respiratory: Moving air well bilaterally. No wheezing. No stridor. Gastrointestinal: Abdomen is soft. Tenderness to palpation in the right lower quadrant. No guardin g or rigidity. Extremities: No clubbing, cyanosis, or edema. Neurologic: Nonfocal. Laboratory Data: Pending. Assessment: 1.A 37-year-old female with right lower quadrant abdominal pain secondary to intraperitoneal hematom a from ruptured ovarian cyst, status post exploratory laparotomy by Dr. Wood. The patient will b e started on a clear liquid diet. Continue pain medications and antiemetics. The patient will need outpatient [employer] followup. 2.Celiac disease. 3.Renal cyst, no change from previous. The patient is aware of the situation, has been having seria l imaging to monitor the cyst. 4.Hyperkalemia, corrected. 5.Hypocalcemia. Replace and monitor. Plan: Discharge once able to tolerate her diet, likely in the next 24-48 hours. /NAHOMI Voice ID: [id number] Report ID: [id number]
[2017-12-19 22:10] VITALS: O2SAT 97
[2017-12-20] MEDS: HYDROCODONE/APAP 7.5/325 MG TAB PO PRN ×3 (01:53→14:14)
[2017-12-20] MEDS: NA CHLORIDE 0.9% 1,000 ML IV SCH ×3 (01:54→13:09)
[2017-12-20] MEDS: ONDANSETRON 4 MG/2 ML VIAL IV PRN (02:02)
--- NOTE | 2017-12-20 02:19 | OP ---
Date of Procedure: 12/19/2017 Surgeon: Phillip Wood MD Temperature Logging Operator: Sol Wheeler. Preoperative Diagnoses: Right lower quadrant pain, ovarian cyst, intractable right lower quadrant pa in. Postoperative Diagnoses: Right lower quadrant pain, ovarian cyst, intractable right lower quadrant p ain plus acute appendicitis and ruptured right ovarian cyst. Procedure: Laparoscopic appendectomy, evacuation of intraperitoneal hematoma. Estimated Blood Loss: Less than 10 cc. The patient have about 20 cc of old blood in the pelvis. Specimen: Appendix. Findings: The patient has about 20 to 25 cc of old blood in the cul-de-sac. The patient has bilater al ovarian cyst. In the right side, the patient has a luteal cyst that shows some blood clot coming from it. It was cauterized and no bleeding. Ovary was left intact. Appendix was aligned inside the hematoma itself with some asymmetrical in shape and color and some inflammation probably related to the exposure to the blood in the peritoneum. Since this is abnormal, we still have to remove this si nce patient has appendicitis. After full irrigation of entire abdomen once again everything goes deidra n to the right ovarian cyst. Look like a ruptured luteal cyst. No bleeding at this moment. Indications: This is a case of a 37-year-old patient, comes to us with several days, almost a week h istory of lower abdominal pain. Etiology of that is unknown. Extensive workup has been done by the primary doctor including gynecological evaluation, a CAT scan, multiple blood work, still etiology of that is unknown. Today she still have right lower quadrant pain with no improvement, so we offered to them once again the option of diagnostic lap, possible appendectomy with benefits, alternatives, a nd risks including, but not limited to infection, bleeding, damage to adjacent structures, anesthesia complication, recurrence, LA, and even . They also understood this may not relieve symptoms. She might need more than one surgical intervention, may be negative appendix, negative exploration, a nd this reason should be considered a diagnostic procedure too. She signed a consent, the si gned a consent. They were at beginning of the week, reluctant to do any surgical intervention, then right now when they noticed that she has not improved then they signed a consent for the appendectomy and diagnostic lap since the patient has guarding right in the right lower quadrant. Today she has guarding and rebound. It is not improving. So we proceeded to have the surgery once we have a conse nt. Description Of Procedure: The patient brought to the operating room, placed in supine position. Ane sthesia was done without complication. Abdominal area was prepped and draped in sterile fashion. Ma rcaine 0.5% injected for local anesthetic, followed by sharp incision of the skin. In the infraumbil ical region, incision was carried down to fascia, which was opened under direct vision. Peritoneum w as encountered, opened under direct vision. Vicryl #1 placed inside of the fascia. David trocar wa s carefully introduced. No bleeding was obtained. Immediately we noticed the patient has blood in t he cul-de-sac, at least 25 cc easily. It seems like it is a clot coming from the right luteal cyst. We put 2 more trocars, 5 mm each one of them, to help us to do the diagnostic lap in the suprapubic and left lower quadrant under direct visualization. This once again helped us to find etiology of th at. Blood seems to be coming from a luteal cyst on the right ovary. The appendix looks embedded on all the blood collection, looks irritated, asymmetrical in shape and color. It is unable to tell if it is bacteria or just irritation in origin. It looks abnormal and it will come out. So before we d id that we proceeded to continue with diagnostic lap inspecting all the quadrants of the abdomen incl uding liver, gallbladder, the stomach, small bowel, large bowel, and area of the pelvis, anterior abd ominal wall with no evidence of bleeding or any other trauma. So, we directed our attention once aga in to the pelvic region after few irrigation and suction. We noticed the patient to have this clot c oming from the right ovary itself. Area was cauterized. No bleeding at this moment. The left side also showed some ovaries but did not bleed at this moment. Fallopian tube was also examined with no bleeding. Uterus looks nice and smooth. At that moment, I created a window in the base of the appen adalberto, transected that with an Endo RUSLAN 45 mm 3.5, and the mesoappendix with Endo RUSLAN 45 mm 2.5. Furth er hemostasis was obtained with the help of hemoclips. The area was irrigated and suctioned. Once a gain, no bleeding. The ovary was inspected once again. No bleeding. Some pictures obtained for the aoc director intelligence officer for evaluation since this patient may need some treatment from them. The patient and f lamine does not want anything to be done with ovary at this moment anyway, so hopefully through medica l treatment, a medical oophorectomy can control this bleeding episode. At that moment, I proceeded t o remove the trocars under direct vision. Deflated pneumoperitoneum. Closed the fascia with #1 Vicr yl, irrigated the subcutaneous tissue, closed that with 3-0 chromic and the skin in a subcuticular fa shion with 3-0 chromic and Steri-Strips on top. Sponge count and instrument counts were correct. Th e patient tolerated the procedure well. ARABELLA/NAHOMI Voice ID: [id number] Report ID: [id number]
[2017-12-20 05:37] LABS: Absolute Lymphocytes (CBC) 1.7 K/uL (0.7-4.9); Absolute Monocytes 0.6 K/uL (0.1-1.3); Basophils % 0.5 % (0-1.3); Eosinophils % 1.7 % (0-4.4); MCV 84.3 fL (80-100); MPV 7.9 fL (7.6-11.3); Monocytes % 7.9 % (3.3-12.3); RBC Red Blood Cell Count 3.67 M/uL (3.86-4.86)
[2017-12-20 05:56] LABS: ALT/SGPT 15 U/L (12-78); AST/SGOT 8 U/L (15-37); Albumin 3.1 g/dL (3.4-5.0); Alkaline Phosphatase 45 U/L (45-117); BUN Blood Urea Nitrogen 2 mg/dL (7-18); Bicarbonate 24 mmol/L (21-32); Bilirubin Total 0.4 mg/dL (0.2-1.0); Glucose Level 82 mg/dL (74-106); Potassium 3.2 mmol/L (3.5-5.1); Protein, Total 5.7 g/dL (6.4-8.2); Sodium Level 141 mmol/L (136-145)
[2017-12-20] MEDS ORDERED: POTASSIUM CL SA 10 MEQ TAB PO ONE ×2 (07:00→13:33)
[2017-12-20] MEDS: CEFTRIAXONE/SWI 1gm 1 GM/10 ML SYR IV SCH (09:24)
[2017-12-20] MEDS: CALCITROL 0.25 MCG CAP PO SCH (09:24)
[2017-12-20] MEDS: MORPHINE 2 MG/ML SYR IV PRN ×2 (10:49→16:23)
--- NOTE | 2017-12-20 13:05 | PN ---
Subjective: The patient did well postoperatively. Went for exploratory laparotomy yesterday BY Dr. Wood. The patient states her lower quadrant pain is resolved. Had some nausea last night, howev er, this morning feels significantly better. No pain. No nausea. Wants to eat. Review of Systems: Negative except as above. Medications: List reviewed. Objective: Vital Signs: Temperature 97.1, heart rate 80, blood pressure 141/87, respirations 17, O2 saturation 97% on room air. General: Awake, alert, oriented x3, not in any acute distress. CV: S1, S2. No murmurs. Respiratory: Moving air well bilaterally. No wheezing. Gastrointestinal: Abdomen is soft, nontender, nondistended. Positive bowel sounds. No guarding or rigidity. Extremities: No clubbing, cyanosis, or edema. Neurologic: Nonfocal. SKIN: Surgical incision site clean, dry, intact. Laboratory Data: Sodium 141, potassium 3.2, chloride 109, CO2 24, BUN 2, creatinine 0.3, glucose 82, calcium 7.6, albumin 3.1. WBC 7.5, H and H 11, 31, platelets 269. Assessment: 1.A 37-year-old female with right lower quadrant abdominal pain secondary to intraperitoneal hematom a from ruptured ovarian cyst, status post exploratory laparotomy and evacuation of the blood by Dr. Maxwell reyes. The patient doing significantly better and tolerating clear liquid diet. We will advance a s tolerated. Continue pain medications and antiemetics. The patient needs to follow up with her OB/ ARMY MANAGER as outpatient. She is at risk for further possible cyst rupture and symptoms. The patient also had appendectomy done at the same time of the surgery. Pathology specimen pending. The patient to f ollow up with Dr. Wood outpatient for wound check. 2.Celiac disease. 3.Renal cyst. Continue serial imaging studies. 4.Hypocalcemia. We will replace and monitor. 5.Hyperkalemia, corrected, now hypokalemia. We will replace and monitor. Check magnesium level. Plan: Advance diet as tolerated. Likely discharge in the next 24 hours if continues to improve. SA/MODL Voice ID: [id number] Report ID: [id number]
[2017-12-20] MEDS ORDERED: Magnesium Sulfate 2gm IVPB 2 G/50 ML BAG IV ONE (13:38)
--- NOTE | 2017-12-20 16:06 | P.DS ---
Admission Date: 12/18/17 Discharge Date: 12/20/17 Disposition: ROUTINE DISCHARGE Discharge Condition: GOOD Reason for Admission: Abdominal pain RLQ unknown origin Vital Signs/Physical Exam: Temp Pulse Resp BP Pulse Ox 97.1 F 80 17 141/87 H 97 12/20/17 08:00 12/20/17 08:00 12/20/17 08:00 12/20/17 08:00 12/20/17 08:00 General: Alert, In no apparent distress, Oriented x3, Cooperative HEENT: PERRLA, EOMI Neck: Supple Respiratory: Normal air movement Gastrointestinal: Soft and benign Integumentary: No erythema, No warmth, No cyanosis Neurological: Normal speech Laboratory Data at Discharge: WBC 7.5 K/uL (4.3-10.9) 12/20/17 04:44 Hgb 11.0 g/dL (12.0-15.0) L 12/20/17 04:44 Hct 31.0 % (36.0-45.0) L 12/20/17 04:44 Plt Count 269 K/uL (152-406) 12/20/17 04:44 Sodium 141 mmol/L (136-145) 12/20/17 04:44 Potassium 3.8 mmol/L (3.5-5.1) 12/20/17 12:13 BUN 2 mg/dL (7-18) L 12/20/17 04:44 Creatinine 0.30 mg/dL (0.55-1.3) L 12/20/17 04:44 Glucose 82 mg/dL (74-106) 12/20/17 04:44 Magnesium 1.7 mg/dL (1.8-2.4) L 12/20/17 12:13 Total Bilirubin 0.4 mg/dL (0.2-1.0) 12/20/17 04:44 AST 8 U/L (15-37) L 12/20/17 04:44 ALT 15 U/L (12-78) 12/20/17 04:44 Alkaline Phosphatase 45 U/L (45-117) 12/20/17 04:44 Amylase 37 U/L (25-115) 12/16/17 20:00 Lipase 123 U/L (73-393) 12/16/17 20:00 Home Medications: Tramadol HCl/Acetaminophen [Tramadol-Acetaminophn 37.5-325] 1 each PO DAILY PRN 12/17/17 Amox/Clavulanate [Augmentin 875-125 Tab] 875 mg PO BID #10 tab 12/20/17 Codeine/APAP [Tylenol W/Codeine #3 tab] 1 tab PO Q4HP PRN #30 tab 12/20/17 New Medications: Amox/Clavulanate [Augmentin 875-125 Tab] 875 mg PO BID #10 tab Codeine/APAP [Tylenol W/Codeine #3 tab] 1 tab PO Q4HP PRN #30 tab PRN Reason: Pain Patient Discharge Instructions: Keep area dry for 24h then may remove outer dressing and shower. Keep sterile strips intact. F/u with her gynecologyst one week Diet: AHA Activity: No lifting more than 10 lbs Followup: Phillip Wood MD [ACTIVE - CAN ADMIT] - 1 Week
[2017-12-20 17:28] VITALS: BP 149/72; TEMP 98.5
[2017-12-20] MEDS ORDERED: CALCIUM CARBONATE 500 MG TAB PO SCH (21:00)
--- NOTE | 2017-12-22 11:21 | DS ---
Date of Discharge: 12/20/2017 Procedures: On 12/19/2017, exploratory laparoscopy with cauterization of left ovarian cyst, evacuation of intraperitoneal hematoma. Admitting Diagnoses: 1. Right lower quadrant abdominal pain. 2. Celiac disease. 3. Renal cyst. 4. Ketosis. Discharge Diagnoses: 1. Right lower quadrant abdominal pain secondary to intraperitoneal hematoma from ruptured ovarian cyst, status post ex lap and evacuation of hematoma and status post appendectomy. 2. Celiac disease. 3. Renal cyst. We will need serial imaging studies. 4. Hypocalcemia. 5. Hyperkalemia, corrected. Hospital Course: The patient is a 37-year-old female who comes in with right lower quadrant abdominal pain, suspected to have appendicitis, however, CT was negative. She does have history of celiac disease. CT did show left ovarian follicle. The patient was started on IV fluids and admitted for further evaluation. The patient was started on IV antibiotics and IV fluids, pain medications. The patient was also seen by surgeon, Dr. Wood, not felt to be appendicitis, however, continued to have right lower quadrant abdominal pain. Vaginal ultrasound was done, which showed left ovarian cyst follicle and multiple other cysts. The patient was then essentially taken for exploratory laparoscopy due to continued symptoms which were not improving. The patient found to have intraperitoneal hematoma which was evacuated and appendectomy was also done. The patient did have some mild electrolyte abnormalities, which were corrected. The patient was then feeling significantly better. Pain was improved. She was counseled to follow up with her MENTAL RETARDATION NURSE for oral contraceptives to prevent future bleeding, which may recur at the time of her menses. The patient was able to tolerate her diet. No longer had any pain. She was cleared from surgical standpoint and was sent home in a stable condition. Followup: Follow up with addiction treatment counselor in 1 week. Follow up with Dr. Wood in 7 to 10 days for wound check. Diet: Gluten free diet. Activity: No lifting more than 10 pounds or operating heavy machinery or driving while on narcotics. Medications: As per medication reconciliation list. Physical Examination: Physical exam findings, please see the progress note dictated on day of discharge. Total time spent discharging pt was 38 minutes. THELMA Voice ID: [id number] Report ID: [id number] NILA
== END 2017-12-20 20:45 | disposition home or self-care (01) | DRG 749 ==
LOC: ER 19:22 → ERHOLD 23:29 → 2ND 12-17 00:18 → OBSVTOIN 12-18 16:30
PROVIDERS: ADMIT Hospitalist; ATTEND Family Medicine
PROC: 0W9F4ZZ Drainage of Abdominal Wall, Percutaneous Endoscopic Approach (ICD-10-PCS; 2017-12-19)
PROC: 0DTJ4ZZ Resection of Appendix, Percutaneous Endoscopic Approach (ICD-10-PCS; principal; 2017-12-19 13:00)
DX: N83.201 Unspecified ovarian cyst, right side (principal); K35.80 Unspecified acute appendicitis; K90.0 Celiac disease; N28.1 Cyst of kidney, acquired; E87.6 Hypokalemia; E88.89 Other specified metabolic disorders; E83.51 Hypocalcemia
CPT/HCPCS: 36415; 74177; 76830; 80048; 80053; 80076; 81003; 81015; 81025; 82150; 83690; 83735; 84132; 85025; 87086; 87088; 88304; 96374; 96375; 99284; G0378; J0330; J0696; J2175; J2270; J2370; J2405; J2710; J3010; J3475; J7030; Q9967